=== PATIENT | male | born 1940 | race Caucasian/White ===

== ENCOUNTER 2024-04-15 03:07 | Outpatient (CLI) | payer MEDICARE, SELFPAY ==
[2024-04-15 15:04] LABS: Abs Immature Grans 0.03 10^3/uL (0.0-0.06); Absolute Basophil Count 0.04 10^3/uL (0.0-0.2); Absolute Eosinophil Count 0.12 10^3/uL (0.0-0.7); Absolute Lymphocyte Count 0.63 10^3/uL (1.2-3.4); Absolute Monocyte Count 0.48 10^3/uL (0.1-0.8); Absolute Neutrophil Count 2.86 10^3/uL (1.2-6.7); Eosinophils % 2.9 %; HCT 34.9 % (40.0-50.0); HGB 11.5 g/dL (13.5-17.5); Immature Grans % 0.7 %; Lymphocytes % 15.1 %; MCH 28.4 pg (27.0-33.0); MCV 86 fL (80-95); MPV 11.1 fL (8.0-11.0); Monocytes % 11.5 %; Neutrophils % 68.8 %; Platelet Count 232 10^3/uL (130-400); RBC 4.05 10^6/uL (4.36-5.78); RDW 14.6 % (11.8-14.1); RDW-SD 46.4 fL; WBC 4.16 10^3/uL (4.4-10.8)
[2024-04-15 15:25] LABS: Hemoglobin A1C 5.5 % (<5.7)
[2024-04-15 16:27] LABS: ALT 16 U/L (16-63); AST 18 U/L (15-37); Albumin 3.6 g/dL (3.4-5.0); Alkaline Phosphatase 76 U/L (46-116); Anion Gap 7.1 mmol/L (3-11); BUN 19 mg/dL (7-18); Bilirubin, Total 0.4 mg/dL (0.2-1.0); CO2 28.9 mmol/L (21.0-32.0); Calcium 9.4 mg/dL (8.5-10.1); Calculated LDL 51 mg/dL (<100); Chloride 106 mmol/L (98-107); Cholesterol 124 mg/dL (<200); Estimated GFR 75.14 (mL/min/1.73m2); Ferritin 126 ng/mL (26-388); Glucose 98 mg/dL (74-106); HDL Cholesterol 49 mg/dL (>or=40); Magnesium 2.2 mg/dL; Sodium 142 mmol/L (136-145); TSH 0.47 uIU/mL (0.36-3.74); Total Protein 7.2 g/dL (6.4-8.2); Triglyceride 120 mg/dL (<150); Vitamin B12 > 2000 pg/mL (193-986); Vitamin D 25 Total 67 ng/mL (30-100)
[2024-04-15 16:37] LABS: GGT 11 U/L (15-85)
[2024-04-15 22:51] LABS: CRP, High Sensitivity 5.18 mg/L (See Note)
[2024-04-15 23:03] LABS: T4, Free 1.6 ng/dL (0.8-2.2)
[2024-04-15 23:05] LABS: T3,Free 3.3 pg/mL (2.8-5.3)
[2024-04-16 09:55] LABS: Homocysteine 5.6 umol/L (5.0-13.9)
[2024-04-16 11:38] LABS: DHEA Sulfate 124 ug/dL (See Note)
[2024-04-17 11:40] LABS: Apolipoprotein B, S 62 mg/dL; Lipoprotein (a) 20 nmol/L (<75)
[2024-04-17 14:05] LABS: Zinc, S 79 mcg/dL (60-106)
[2024-04-20 14:06] LABS: Free 32 nmol/mL (25-54)
[2024-04-20 14:26] LABS: CoQ10 Total 974 mcg/L (433-1532)
[2024-04-20 16:07] LABS: Pregnenolone 36 ng/dL (33-248)
[2024-04-20 17:04] LABS: HDL Particles 27 mcmol/L; LDL Cholesterol (NMR) 63 mg/dL; LDL Particles 943 nmol/L
[2024-04-23 16:31] LABS: IGF-1, LC/MS, S 72 ng/mL (33-185); Z-score -0.67 SD
[2024-04-24 17:17] LABS: Testosterone, Bioavailable 68 ng/dL; Testosterone, Total 753 ng/dL (240-950)
== END 2024-04-15 03:08 | disposition home or self-care (01) ==
PROVIDERS: Visit Provider Emergency Medicine
DX: R53.83 Other fatigue (principal)
CPT/HCPCS: 36415; 80053; 80061; 82172; 82306; 82379; 82542; 82627; 83090; 83695; 83698; 83704; 84402; 84403; 84410; 84630; 86141; 82607; 82728; 82977; 83036; 83735; 84140; 84305; 84439; 84443; 84481; 85025